=== PATIENT | female | born 1980 | race Caucasian/White ===

== ENCOUNTER 2017-10-06 12:30 | Emergency (ER) | payer BC ==
[2017-10-06 13:58] VITALS: BP 124/80
--- NOTE | 2017-10-06 14:08 | UC ---
Skin Complaint HPI - HPI Summary HPI Summary: bee sting right wrist x 2 hrs ago + pain and swelling of the right wrist no fever, no chills, no cough , no sob , no swollen throat - History of Current Complaint Chief Complaint: UCAllergicReaction Time Seen by Provider: 10/06/17 13:52 Stated Complaint: BEE STING-RT HAND REDNESS/SWELLING Hx Obtained From: Patient Hx Last Menstrual Period: 10/04/17 ?: No Onset/Duration: Sudden Onset, Lasting Hours - 2, Still Present Timing: Constant Onset Severity: Moderate Current Severity: Moderate Pain Intensity: 0 Location: Hand (Right) - right wrist Character: Swelling, Pruritus, Redness, Painful Aggravating Factor(s): Touch Alleviating Factor(s): Cold Associated Signs & Symptoms: Positive: Tenderness. Negative: Nausea, Vomiting, Numbness, Thirst, Diaphoresis, Weakness, Pallor, Shivering, Fever, Chills, Cough , Wheezing - Allergy/Home Medications Allergies/Adverse Reactions: Allergies Allergy/AdvReac Type Severity Reaction Status Date / Time bee venom protein (honey bee) Allergy Unknown Anaphylatic Verified 10/06/17 13: 50 Shock egg Allergy Unknown Anaphylatic Verified 10/06/17 13:50 Shock Egg Derived Allergy Anaphylatic Verified 10/06/17 13:50 Shock Review of Systems Constitutional: Negative Eyes: Negative ENT: Negative Respiratory: Negative Cardiovascular: Negative Gastrointestinal: Negative Is Patient Immunocompromised?: No All Other Systems Reviewed And Are Negative: Yes PMH/Surg Hx/FS Hx/Imm Hx Previously Healthy: Yes - Surgical History Surgical History: Yes Surgery Procedure, Year, and Place: ear tubes - Family History Known Family History: Negative: Cardiac Disease, Hypertension, Diabetes - Social History Alcohol Use: Occasionally Substance Use Type: None Smoking Status (MU): Never Smoked Tobacco When Did the Patient Quit Smoking/Using Tobacco: 2001 - Immunization History Most Recent Influenza Vaccination: Not the Season Physical Exam Triage Information Reviewed: Yes Appearance: Well-Appearing, No Pain Distress, Well-Nourished Vital Signs: Initial Vital Signs Temp 98 F 10/06/17 13:50 Pulse 70 10/06/17 13:50 Resp 20 10/06/17 13:50 BP 124/80 10/06/17 13:50 Pulse Ox 100 10/06/17 13:50 Vital Signs Reviewed: Yes Eyes: Positive: Conjunctiva Clear ENT: Positive: Normal ENT inspection, Hearing grossly normal, Pharynx normal Neck: Positive: Supple, Nontender, No Lymphadenopathy Respiratory: Positive: Chest non-tender, Lungs clear, Normal breath sounds Cardiovascular: Positive: RRR, No Murmur, Pulses Normal Abdominal Exam: Normal Skin: Positive: Other - right wrist / hand : + erythema, swelling, mild tenderness, Course/Dx - Diagnoses Provider Diagnoses: bee sting right wrist Discharge - Discharge Plan Condition: Stable Disposition: HOME Prescriptions: Cephalexin CAP* [Keflex CAP*] 500 mg PO TID #21 cap Patient Education Materials: Insect Bite or Sting (ED) Referrals: BECCA Anders [Primary Care Provider] - If Needed Additional Instructions: keflex 500 mg 3 x per day to prevent cellulitis cool compresses, Benadryl 25 mg ever 6 hrs for one day , as needed after today take Tylenol as needed for don
== END 2017-10-06 14:07 | disposition home or self-care (01) ==
LOC: UCCORT 12:30
DX: T63.441A Toxic effect of venom of bees, accidental (unintentional), initial encounter (principal); Y92.9 Unspecified place or not applicable; Z91.030 Bee allergy status; Z91.012 Allergy to eggs
CPT/HCPCS: 99212; G0463